=== PATIENT | male | born 1985 | race Caucasian/White ===

== ENCOUNTER 2020-11-17 15:43 | Emergency (ER) | payer OTHER ==
--- NOTE | 2020-11-17 16:10 | ED Physician Documentation ---
History of Present Illness - Stated complaint Stated Complaint: RT EAR PX - Chief complaint Chief Complaint: Heent - Additonal information Additional information: 35-year-old male presents the emergency department for evaluation of acute right ear pain and muffled hearing that he woke up with this morning. He reports that he used fumy-rjx-ybagxhy eardrops which only worsen the pain. Denies any fevers cough cold or congestion. He does have a history of recurrent ear infections when he was much younger. He does use Q-tips in his ears daily. Review of Systems Constitutional: reports: Reviewed and negative Eyes: reports: Reviewed and negative Ears: reports: Ear pain, Drainage/discharge Nose: reports: Reviewed and negative Throat: reports: Reviewed and negative Cardiac: reports: Reviewed and negative Respiratory: reports: Reviewed and negative GI: reports: Reviewed and negative : reports: Reviewed and negative PD PAST MEDICAL HISTORY - Present Medications Home Medications: Ambulatory Orders Medication Instructions Recorded Confirmed Ciprofloxacin HCl/Dexameth 7.5 ml OT BID #1 bottle 11/17/20 [Ciprodex Otic Suspension] - Allergies Allergies/Adverse Reactions: Allergies Allergy/AdvReac Type Severity Reaction Status Date / Time No Known Drug Allergies Allergy Verified 11/17/20 15:55 PD ED PE EXPANDED - General General: Alert, No acute distress - HEENT HEENT: No: Ears normal (Right EAC markedly erythematous with large amount of mucopurulent drainage. Visible TM appears intact. Mild tenderness elicited with tugging of the ear. No mastoid tenderness. Left ear and TM unremarkable. No trismus. No cervical, submandibular or auricular lymphadenopathy noted) Results - Vitals Vitals: Vital Signs - 24 hr 11/17/20 15:48 Temperature 36.6 C Heart Rate 76 Respiratory 15 Rate Blood Pressure 132/74 H O2 Saturation 99 Oxygen O2 Source Room air PD MEDICAL DECISION MAKING - ED course Complexity details: reviewed results, re-evaluated patient ED course: 35-year-old male presents emergency department for evaluation of acute right ear pain and muffled hearing that began this morning. No associated illness. On exam he has right otitis externa. Visible TM is intact. Patient will be started on Ciprodex antibiotic suspension. Routine wound care emergent return precautions discussed. Patient was advised to discontinue use of Q-tips. Departure - Departure Disposition: 01 Home, Self Care Clinical Impression: Right otitis externa Qualifiers: Otitis externa type: unspecified type Chronicity: acute Qualified Code(s): H60.501 - Unspecified acute noninfective otitis externa, right ear Condition: Stable Record reviewed to determine appropriate education?: Yes Instructions: ED Otitis Externa Prescriptions: Ciprofloxacin HCl/Dexameth [Ciprodex Otic Suspension] 7.5 ml OT BID #1 bottle Comments: Alf you do have and external right ear canal infection. This is most likely associated with daily Q-tip use. I would recommend that you stop using Q-tips until this infection resolves. Please fill the prescription for the antibiotic drops and place 3 drops in your right ear canal twice daily for the next 7 days. Please take ibuprofen or Tylenol oloj-erl-drlvomu for discomfort. Return to the emergency department if you develop fevers, have external ear swelling, worse pain or feel that the symptoms are not improving.
[2020-11-17 16:14] VITALS: BP 128/74
== END 2020-11-17 16:14 | disposition home or self-care (01) ==
LOC: ED 15:43
DX: H60.501 Unspecified acute noninfective otitis externa, right ear (principal)
CPT/HCPCS: 99282; 99283

== ENCOUNTER 2021-07-18 11:49 | Emergency (ER) | payer OTHER ==
--- NOTE | 2021-07-18 13:50 | XRAY Report ---
PROCEDURE: Chest 1 View X-Ray INDICATIONS: Chest pain TECHNIQUE: One view of the chest was acquired. COMPARISON: None FINDINGS: Surgical changes and devices: None. Lungs and pleura: No pleural effusions or pneumothorax. Lungs are clear. Mediastinum: Mediastinal contours appear normal. Heart size is normal. Bones and chest wall: No suspicious bony lesions. Overlying soft tissues appear unremarkable. IMPRESSION: No acute cardiopulmonary process demonstrated radiographically. Reviewed by: Oni Gooden MD on 07/18/2021 1:48 PM PST Approved by: Oni Gooden MD on 07/18/2021 1:48 PM [facility] Station ID: [id number]
--- NOTE | 2021-07-18 14:02 | ED Physician Documentation ---
History of Present Illness - Stated complaint Stated Complaint: SOA - Chief complaint Chief Complaint: Resp - Additonal information Additional information: 36-year-old male who is doubly vaccinated for COVID-19 presents to the emergency department for cough and mild shortness of air. His son tested positive for COVID 5 days ago. Patient has not yet been screened for Covid but suspects that this is what he has. [employer] is requiring testing before he can return to work. Mild shortness of air but no fevers. Cough is dry. No hemoptysis. No fainting episodes or chest pain. No tobacco use. Review of Systems Constitutional: denies: Fever, Chills Eyes: reports: Reviewed and negative Ears: reports: Reviewed and negative Throat: reports: Reviewed and negative Cardiac: reports: Reviewed and negative Respiratory: reports: Dyspnea, Cough GI: reports: Reviewed and negative : reports: Reviewed and negative PD PAST MEDICAL HISTORY - Past Surgical History Past Surgical History: No - Present Medications Home Medications: Ambulatory Orders Medication Instructions Recorded Confirmed Ciprofloxacin HCl/Dexameth 7.5 ml OT BID #1 bottle 11/17/20 [Ciprodex Otic Suspension] - Allergies Allergies/Adverse Reactions: Allergies Allergy/AdvReac Type Severity Reaction Status Date / Time No Known Drug Allergies Allergy Verified 07/18/21 12:18 - Social History Does the pt smoke?: No Smoking Status: Never smoker Does the pt have substance abuse?: No - POLST Patient has POLST: No PD ED PE NORMAL - General General: Alert and oriented X 3, No acute distress - HEENT HEENT: PERRL, Moist mucous membranes - Neck Neck: Supple, no meningeal sign, No adenopathy, Thyroid normal - Cardiac Cardiac: RRR, No murmur, No gallop - Respiratory Respiratory: No respiratory distress - Abdomen Abdomen: Normal bowel sounds, Soft, Non tender - Back Back: No CVA TTP, No spinal TTP - Derm Derm: Normal color, Warm and dry, No rash - Extremities Extremities: No deformity - Neuro Neuro: Alert and oriented X 3 Eye Opening: Spontaneous Motor: Obeys Commands Verbal: Oriented GCS Score: 15 Results - Vitals Vitals: Vital Signs - 24 hr 07/18/21 12:11 Temperature 36.8 C Heart Rate 86 Respiratory 17 Rate Blood Pressure 136/77 H O2 Saturation 99 Oxygen O2 Source Room air - Rads (name of study) CXR Radiology: Final report received (no acute process) PD MEDICAL DECISION MAKING - ED course Complexity details: reviewed results, re-evaluated patient, d/w patient ED course: 36-year-old male presents emergency department for evaluation of cough congestion and mild shortness of air. Symptoms began last night. Patient's son tested positive for COVID-19 5 days ago. Patient is doubly vaccinated for COVID-19 though not yet boosted. I suspect that he likely has the omicron variant. Covid screen is pending. Chest x-ray unremarkable without acute focal findings. Routine care of suspected viral URI was discussed as well as emergent return precautions. Patient is to maintain quarantine until test results are known. Departure - Departure Disposition: Home, Self Care Clinical Impression: Encounter for screening for COVID-19 Upper respiratory infection Qualifiers: URI type: unspecified viral URI Qualified Code(s): J06.9 - Acute upper respiratory infection, unspecified Condition: Stable Record reviewed to determine appropriate education?: Yes Instructions: ED Viral Syndrome Comments: Alf mathur were seen today for cough and mild shortness of air. Your son was positive for COVID-19 at home. You likely have COVID-19 and we are testing you for that today. You must remain in quarantine until your test results are known which may take 48 to 72 hours. You have a Covid test pending. You need to self quarantine until the result is done and negative. Do not leave your house. Do not get near anybody. The results should be done in 48 to 72 hours. We will call with a positive result, the fastest way to get a negative result for confirmation though is to go to the hospital website at [email or web address], click on the my [facility] tab and sign up for the patient portal. If any friends or family get sick and would like to have a Covid test done, but do not have signs or symptoms that would necessitate being hospitalized, there are multiple local options for Covid testing. [facility] keeps an updated list of testing and vaccination options at: [email or web address].
[2021-07-18 14:17] VITALS: BP 165/113
== END 2021-07-18 14:17 | disposition home or self-care (01) ==
LOC: ED 11:49
DX: U07.1 COVID-19 (principal); J06.9 Acute upper respiratory infection, unspecified
CPT/HCPCS: 99282; 99284

== ENCOUNTER 2023-02-09 11:09 | Emergency (ER) | payer OTHER ==
[2023-02-09 11:29] VITALS: BP 152/94; O2SAT 97
--- NOTE | 2023-02-09 11:42 | XRAY Report ---
PROCEDURE: Finger(s) LT INDICATIONS: Trauma TECHNIQUE: AP hand, 2 views of the first finger(s) acquired. COMPARISON: None. FINDINGS: Bones: No fractures or dislocations. No suspicious bony lesions. Soft tissues: No suspicious soft tissue calcifications or masses. IMPRESSION: No acute bony abnormality. If pain persists with conservative management, consider repeat radiographs in 10-14 days or cross-sectional imaging. Reviewed by: Jose Monaco MD on 02/09/2023 11:40 AM PDT Approved by: Jose Monaco MD on 02/09/2023 11:40 AM PDT Station ID: [id number]
--- NOTE | 2023-02-09 11:50 | ED Physician Documentation ---
PD HPI LOWER EXT INJURY - Stated complaint Stated Complaint: LT THUMB PX/SWELLING - Chief complaint Chief Complaint: Ext Problem - History obtained from History obtained from: Patient (37-year-old gentleman who is active duty in the [employer] he jammed his left, dominant thumb at work 2 days ago and has persistent pain there. No other injuries.) PD PAST MEDICAL HISTORY - Past Medical History Past Medical History: No - Past Surgical History Past Surgical History: No - Present Medications Home Medications: Ambulatory Orders Medication Instructions Recorded Confirmed Ciprofloxacin HCl/Dexameth 7.5 ml OT BID #1 bottle 11/17/20 [Ciprodex Otic Suspension] - Allergies Allergies/Adverse Reactions: Allergies Allergy/AdvReac Type Severity Reaction Status Date / Time No Known Drug Allergies Allergy Verified 02/09/23 11:22 - Social History Does the pt smoke?: No Smoking Status: Never smoker Does the pt drink ETOH?: No Does the pt have substance abuse?: No - Immunizations Immunizations are current?: Yes - POLST Patient has POLST: No PD ED PE NORMAL - Vitals Vital signs reviewed: Yes - General General: Alert and oriented X 3, No acute distress - Extremities Extremities: Other (The left hand is grossly normal. He does have pain and tenderness at the MCP with very mild UCL laxity compared to the contralateral side.) - Neuro Neuro: Alert and oriented X 3, Normal speech Results - Vitals Vitals: Vital Signs - 24 hr 02/09/23 11:19 Temperature 36.7 C Heart Rate 76 Respiratory 20 Rate Blood Pressure 152/94 H O2 Saturation 97 Oxygen O2 Source Room air - Rads (name of study) Three-view left thumb is negative for fracture. Relevant Findings:: Final report received, EMP independent interpretation of test Procedures - Splint (location) - Minor Left hand Splint applied by: Physician Type of splint: Fiberglass, Short arm, Thumb spica Other: Patient tolerated well, No complications, Neurovascular intact Departure - Departure Disposition: 01 Home, Self Care Clinical Impression: Injury of UCL of left wrist Qualifiers: Encounter type: initial encounter Qualified Code(s): S66.802A - Unspecified injury of other specified muscles, fascia and tendons at wrist and hand level, left hand, initial encounter Condition: Good Record reviewed to determine appropriate education?: Yes Instructions: Skier's Thumb Comments: As discussed, the x-ray looks fine, but I am concerned given your exam and the mechanism of injury that you have a ulnar collateral ligament injury on your dominant side, AKA "gamekeeper's thumb." Despite no break, this can still be a serious injury, although in my opinion, I suspect your specific injury is fairly mild. Keep the fiberglass splint on and dry and [place] and further management. 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
== END 2023-02-09 12:04 | disposition home or self-care (01) ==
LOC: ED 11:09
DX: S66.902A Unspecified injury of unspecified muscle, fascia and tendon at wrist and hand level, left hand, initial encounter (principal); W22.8XXA Striking against or struck by other objects, initial encounter; Y99.0 Civilian activity done for income or pay; S66.802A Unspecified injury of other specified muscles, fascia and tendons at wrist and hand level, left hand, initial encounter
CPT/HCPCS: 29125; 99283

== ENCOUNTER 2023-07-23 13:30 | Outpatient (CLI) | payer OTHER ==
--- NOTE | 2023-07-23 15:49 | XRAY Report ---
PROCEDURE: Knee V LT INDICATIONS: PAIN IN LEFT KNEE TECHNIQUE: 2 views of the knee(s) were acquired. COMPARISON: None. FINDINGS: Bones: No displaced fracture. No dislocation. Soft tissues: Mild effusion is present. IMPRESSION: Mild effusion. No acute osseous abnormality. If there is high concern for further derange ment, consider MRI evaluation. Reviewed by: Geovani Foy MD on 07/23/2023 3:48 PM PST Approved by: Geovani Foy MD on 07/23/2023 3:48 PM PST Station ID: [id number]
== END 2023-07-23 13:45 | disposition home or self-care (01) ==
LOC: DI.N 13:30
PROVIDERS: ATTEND Nurse Practitioner
DX: M25.562 Pain in left knee (principal); M25.462 Effusion, left knee

== ENCOUNTER 2023-07-24 20:26 | Emergency (ER) | payer OTHER ==
--- NOTE | 2023-07-24 20:49 | ED Physician Documentation ---
History of Present Illness - Stated complaint Stated Complaint: LT KNEE INJ - Chief complaint Chief Complaint: Ext Problem - History obtained from History obtained from: Patient - Additonal information Additional information: 38yM with pmh L knee issues p/w L knee pain X 1 week, worse since yesterday. patient has been exercising a lot and felt a pop in the knee multiple times yesterday and today. He had PT yesterday for the knee and has had worsening pain since then. It was swollen and now improved. denies numbness, weakness or pain radiating. PD PAST MEDICAL HISTORY - Past Medical History Past Medical History: No - Past Surgical History Past Surgical History: No - Present Medications Home Medications: Ambulatory Orders Medication Instructions Recorded Confirmed Ciprofloxacin HCl/Dexameth 7.5 ml OT BID #1 bottle 11/17/20 [Ciprodex Otic Suspension] - Allergies Allergies/Adverse Reactions: Allergies Allergy/AdvReac Type Severity Reaction Status Date / Time No Known Drug Allergies Allergy Verified 07/24/23 20:30 - Social History Does the pt smoke?: No Smoking Status: Never smoker Does the pt drink ETOH?: No Does the pt have substance abuse?: No - Immunizations Immunizations are current?: Yes - POLST Patient has POLST: No PD ED PE NORMAL - Vitals Vital signs reviewed: Yes - General General: Alert and oriented X 3, No acute distress, Well developed/nourished - HEENT HEENT: Atraumatic - Derm Derm: Normal color, Warm and dry - Extremities Extremities: No deformity, Other (tender with ROM of L knee. tender with valgus pressure. 2+ DP pulse LLE. normal sensation, movement, strength distal LLE. ) Results - Vitals Vitals: Vital Signs - 24 hr 07/24/23 20:30 Temperature 36.5 C Heart Rate 82 Respiratory 16 Rate Blood Pressure 150/90 H O2 Saturation 98 Oxygen O2 Source Room air PD Medical Decision Making - ED course ED course: 38yM presents to the ED with L knee pain, likely ligament strain versus MCL tear. He has a home brace already that is adequate. patient had xrays done at OSH yesterday without acute findings. plan to have him f/u with pcp tomorrow and consider MRI. he is already in PT. encouraged conservative care, symptomatic care. IM toradol given with improvement. PO percoset provided for home. Narcotic counseling provided. return precautions given. Departure - Departure Disposition: 01 Home, Self Care Clinical Impression: Knee injury, Strain of ligament, Knee instability Condition: Stable Instructions: ED Sprain Knee Collateral Ligaments Comments: You were seen in the emergency department for knee pain, likely a ligament strain or partial tear. Please follow-up with your primary care provider and consider MRI if this does not improve. You may return to the emergency department if you have any new or worsening symptoms or other concerns. Forms: PCP List
[2023-07-24 20:51] VITALS: BP 150/90; O2SAT 98
[2023-07-24] MEDS: KETOROLAC 30 MG/ML VIAL IM STA (21:03)
[2023-07-24] MEDS: oxyCODONE/ACET 5/325 Prepack 4 PO STA (21:03)
== END 2023-07-24 21:21 | disposition home or self-care (01) ==
LOC: ED 20:26
DX: S86.912A Strain of unspecified muscle(s) and tendon(s) at lower leg level, left leg, initial encounter (principal); Y93.B9 Activity, other involving muscle strengthening exercises
CPT/HCPCS: 96372; 99283

== ENCOUNTER 2023-10-09 15:57 | Emergency (ER) | payer OTHER ==
--- NOTE | 2023-10-09 16:40 | ED Physician Documentation ---
History of Present Illness - Stated complaint Stated Complaint: - Chief complaint Chief Complaint: General - History obtained from History obtained from: Patient - Additonal information Additional information: For many years now he has had intermittent brief left testicular pain. It developed last night and it has been more constant. It is worse when he is upright and was not so bad overnight last night. It is also worse if he he has minor trauma to the testicle or is walking. No vomiting. No urinary complaints. No concern for STDs. PD PAST MEDICAL HISTORY - Past Medical History Past Medical History: No Cardiovascular: None Respiratory: None Neuro: None Endocrine/Autoimmune: None GI: None : None HEENT: None Psych: None Musculoskeletal: None Derm: None - Past Surgical History Past Surgical History: No - Present Medications Home Medications: Ambulatory Orders Medication Instructions Recorded Confirmed HYDROcod/ACETAM 5/325 [[place] 5/325] 1 - 2 tab PO Q6H PRN #15 tablet 10/09/23 levoFLOXacin [Levofloxacin] 500 mg PO DAILY #10 tablet 10/09/23 - Allergies Allergies/Adverse Reactions: Allergies Allergy/AdvReac Type Severity Reaction Status Date / Time No Known Drug Allergies Allergy Verified 10/09/23 16:27 - Social History Does the pt smoke?: No Smoking Status: Never smoker Does the pt drink ETOH?: No Does the pt have substance abuse?: No - Immunizations Immunizations are current?: Yes - POLST Patient has POLST: No PD ED PE NORMAL - Vitals Vital signs reviewed: Yes - General General: Alert and oriented X 3, No acute distress - Abdomen Abdomen: Non tender - Male Male : Other (Testicles have normal lie without deformity or swelling. No hernia mass. Normal cremaster reflexes bilaterally. He does have tenderness to the superior part of the left testicle.) - Neuro Neuro: Alert and oriented X 3, Normal speech Results - Vitals Vitals: Vital Signs - 24 hr 10/09/23 10/09/23 16:14 19:06 Temperature 37.1 C 36.3 C L Heart Rate 71 75 Respiratory 16 16 Rate Blood Pressure 139/86 H 175/101 H O2 Saturation 100 100 Oxygen O2 Source Room air - Rads (name of study) testicular sono Relevant Findings:: Prelim report reviewed, Final report received PD Medical Decision Making - ED course ED course: He presents with testicular pain clinically consistent with epididymitis. The radiologist noted a partially reducible left inguinal hernia with fat in it but also possible mild left epididymitis. No evidence of torsion. 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 He has no concern for STDs. Departure - Departure Disposition: 01 Home, Self Care Clinical Impression: Acute epididymitis Condition: Good Record reviewed to determine appropriate education?: Yes Instructions: Epididymitis Dc Prescriptions: levoFLOXacin [Levofloxacin] 500 mg PO DAILY #10 tablet HYDROcod/ACETAM 5/325 [[place] 5/325] 1 - 2 tab PO Q6H PRN #15 tablet PRN Reason: Pain Comments: I sent your prescription electronically to the [facility] in [place]. In addition to the epididymitis, the lasting room machine operator noted a left inguinal hernia. Since that is not where you are tender, I think is the epididymitis that is hurting you today but both should be mention to your flight surgeon. Call your doctor to arrange a follow-up appointment, make the next available appointment. In the interim, return anytime if worse or if new symptoms develop. I am prescribing a short course of narcotic pain medication for you. These are potentially dangerous and addictive medications that should be used carefully. These medications may constipate you. Take an koes-dlc-zhzllgp stool softener (docusate) twice daily with plenty of water while taking these medications. If you go 24 hours without a bowel movement, take [id number] miralax, per package instructions. Do not drink or drive while taking these medications. If you received narcotic or sedating medications while in the emergency department, do not drive for 24 hours. Store this medication in a safe, secure place and out of reach of children. It is a violation of federal law to give or sell this medication to another person or to use in a manner other than prescribed. The ED will not refill narcotic prescriptions, including prescriptions lost or stolen. To dispose of unwanted medications: 1. [facility]'s Office provides a drop box for medication in pill form only (no liquids) 8:00 am to 4:30 p.m. Saturday-Saturday in the lobby of the [facility], [address] Empty pills into ziplock bag before disposal. Call [phone] for information. 2.[employer] is a free service available to all [facility] residents. Go to [email or web address] Note that many narcotic pain relievers also contain Tylenol/acetaminophen. Please ensure that your total dose of acetaminophen from all sources does not exceed 3 g (3000 mg) per day. Forms: Activity restrictions Discharge Date/Time: 10/09/23 19:10
[2023-10-09 16:47] VITALS: O2SAT 100
--- NOTE | 2023-10-09 19:03 | Ultrasound Report ---
PROCEDURE: Testicle w/Doppler INDICATIONS: Left testicular pain TECHNIQUE: Real-time scanning was performed of the scrotum and testicles, with image documentation. Color and p ulse Doppler interrogation was performed of both testicles. COMPARISON: None. FINDINGS: Right: Testicle is normal in size at 4.5 x 2 x 3.4 cm, and homogenous in echotexture. Epididymis is normal in overall size and morphology. No hydrocele. No varicoceles. Overlying scrotal skin is nor mal in thickness. Small epididymal head cysts are present. Left: Testicle is normal in size at 4.2 x 2.4 x 3.1 cm, and homogeneous in echotexture. Mildly incre ased epididymal vascularity. There are small subcentimeter cysts. No hydrocele. No varicoceles. Over lying scrotal skin is normal in thickness. Doppler: Color and pulse Doppler demonstrate normal and symmetric arterial flow in both testicles. At the area of clinical concern, there is a left inguinal hernia that is fat-containing and partially reducible, neck measuring 2.7 cm. IMPRESSION: At the area of clinical concern, there is a partially reducible left inguinal hernia containing fat w ith neck measuring 2.7 cm. Possible mild left epididymitis. No evidence of testicular torsion. Reviewed by: Geovani Foy MD on 10/09/2023 7:02 PM PDT Approved by: Geovani Foy MD on 10/09/2023 7:02 PM PDT Station ID: [id number]
[2023-10-09 19:13] VITALS: BP 175/101
== END 2023-10-09 19:10 | disposition home or self-care (01) ==
LOC: ED 15:57
DX: N45.1 Epididymitis (principal); K40.90 Unilateral inguinal hernia, without obstruction or gangrene, not specified as recurrent
CPT/HCPCS: 93975; 99284